=== PATIENT | male | born 1980 | race Two or more races ===

== ENCOUNTER → 2024-10-23 | Outpatient (CLI) | payer MEDICAID, SELFPAY ==
--- NOTE | 2024-10-23 16:00 | XR_ITS ---
Examination: Testicular sonography complete Technique: Grayscale sonographic images testes, assessment arterial inflow venous outflow Doppler spectral analysis carful analysis Exam date and time: 2024 1631 hrs. Indications: Onset right-sided testicular pain beginning 2 days ago Findings: Right testis 4.4 cm epididymis 1.4 cm Left testis 4.2 cm epididymis 1.2 cm Arterial flow to the testes No testicular masses Mild bilateral hydroceles Impression: No testicular torsion or testicular mass
== END | disposition home or self-care (01) ==
LOC: CDIM 15:56
PROVIDERS: Referring Provider Student in an Organized Health Care Education/Training Program; Visit Provider Student in an Organized Health Care Education/Training Program
DX: R30.0 Dysuria (principal); N50.819 Testicular pain, unspecified
CPT/HCPCS: 76870